=== PATIENT | male | born 1935 | race Caucasian/White ===

== ENCOUNTER → 2017-02-24 | Outpatient (CLI) | payer MEDICARE, BC ==
[2017-02-24 09:09] LABS: CHCM 31.3; HCT 55.4 % (39.0-53.0); HGB 17.7 gm/dL (13.0-17.5); Hypochromasia Slight; MCH 31.8 pg (25.0-35.0); MCV 99.4 fL (80.0-100.0); Mean Platelet Volume 7.4; RBC 5.58 m/uL (4.30-5.90); RDW 13.5 % (11.5-15.5); WBC 7.9 k/uL (3.8-10.6)
[2017-02-24 13:36] LABS: ALT 57 U/L (21-72); AST 42 U/L (17-59); Alkaline Phosphatase 107 U/L (38-126); Anion Gap 8 mmol/L; Blood Urea Nitrogen 20 mg/dL (9-20); Calcium 9.3 mg/dL (8.4-10.2); Carbon Dioxide 27 mmol/L (22-30); Chloride 108 mmol/L (98-107); Cholesterol 132 mg/dL (<200); Glucose 90 mg/dL (74-99); HDL Cholesterol 54 mg/dL (40-60); Non-African American GFR(MDRD) >60 (>60 ml/min/1.73 sqM); Potassium 4.1 mmol/L (3.5-5.1); Sodium 143 mmol/L (137-145); Total Bilirubin 1.4 mg/dL (0.2-1.3); Total Protein 7.2 g/dL (6.3-8.2)
== END | disposition home or self-care (01) ==
LOC: LABWHC1 08:29
PROVIDERS: ATTEND Family Medicine
DX: E78.00 Pure hypercholesterolemia, unspecified (principal); I25.10 Atherosclerotic heart disease of native coronary artery without angina pectoris; Z12.5 Encounter for screening for malignant neoplasm of prostate
CPT/HCPCS: 80061; 80053; 84443; 85027; 36415; G0103

== ENCOUNTER → 2017-06-24 | Outpatient (CLI) | payer MEDICARE, BC ==
[2017-06-24 14:38] LABS: T4, Free (Free Thyroxine) 0.97 ng/dL (0.78-2.19)
[2017-06-24 18:55] LABS: Protein, Total 6.9 g/dL (6.2-8.2); Rheumatoid Factor 5 IU/mL (0-15)
[2017-06-24 19:39] LABS: Anti-DNA, DS unit <1.0 IU/mL; DNA Double-Stranded NEGATIVE (NEGATIVE)
[2017-06-24 21:22] LABS: Hemoglobin A1C 5.6 % (4.0-6.0)
[2017-06-25 09:17] LABS: Lyme IgG/IgM 0.2 Index
[2017-06-25 13:47] LABS: Albumin 4.18 g/dL (3.80-4.90); Gamma Globulin 1.04 g/dL (0.70-1.50)
[2017-06-30 11:56] LABS: Arsenic Whole Blood < 2 mcg/L (< 23); Mercury Whole Blood < 2 mcg/L (< 11)
== END | disposition home or self-care (01) ==
LOC: LABWHC1 13:04
PROVIDERS: ATTEND Psychiatry & Neurology Neurology
DX: G62.9 Polyneuropathy, unspecified (principal)
CPT/HCPCS: 36415; 82175; 82550; 82570; 82607; 82747; 83036; 83655; 83825; 84165; 84439; 84443; 85652; 86038; 86225; 86431; 86618

== ENCOUNTER → 2017-06-30 | Outpatient (CLI) | payer MEDICARE, BC ==
[2017-06-30 11:32] LABS: ALT 47 U/L (21-72); AST 40 U/L (17-59); Albumin 4.2 g/dL (3.5-5.0); Alkaline Phosphatase 101 U/L (38-126); Anion Gap 11 mmol/L; Blood Urea Nitrogen 18 mg/dL (9-20); Calcium 9.6 mg/dL (8.4-10.2); Carbon Dioxide 30 mmol/L (22-30); Chloride 105 mmol/L (98-107); Cholesterol 144 mg/dL (<200); Glucose 88 mg/dL (74-99); HDL Cholesterol 63 mg/dL (40-60); LDL Cholesterol,Calculated 55 mg/dL (0-99); Magnesium 1.9 mg/dL (1.6-2.3); Potassium 4.4 mmol/L (3.5-5.1); Sodium 146 mmol/L (137-145); Total Bilirubin 1.2 mg/dL (0.2-1.3); Total Protein 7.5 g/dL (6.3-8.2); Triglycerides 132 mg/dL (<150)
== END | disposition home or self-care (01) ==
LOC: LABWHC1 10:53
PROVIDERS: ATTEND Internal Medicine Clinical Cardiac Electrophysiology
DX: I48.91 Unspecified atrial fibrillation (principal); I34.0 Nonrheumatic mitral (valve) insufficiency
CPT/HCPCS: 36415; 80053; 80061; 83735; 84443

== ENCOUNTER → 2017-12-21 | Outpatient (CLI) | payer MEDICARE, BC ==
[2017-12-21 10:26] LABS: Calcium 9.5 mg/dL (8.4-10.2); Magnesium 2.2 mg/dL (1.6-2.3); Potassium 4.7 mmol/L (3.5-5.1)
== END | disposition home or self-care (01) ==
LOC: LABWHC1 09:05
PROVIDERS: ATTEND Internal Medicine Clinical Cardiac Electrophysiology
DX: I48.91 Unspecified atrial fibrillation (principal)
CPT/HCPCS: 36415; 80048; 83735

== ENCOUNTER → 2020-03-22 | Outpatient (CLI) | payer MEDICARE, BC ==
[2020-03-23 01:21] LABS: ALT 38 U/L (10-49); AST 35 U/L (14-35)
== END | disposition home or self-care (01) ==
LOC: LABWHC1 15:24
PROVIDERS: ATTEND Podiatrist Foot & Ankle Surgery
DX: K74.60 Unspecified cirrhosis of liver (principal)
CPT/HCPCS: 36415; 84450; 84460

== ENCOUNTER → 2020-04-25 | Outpatient (CLI) | payer MEDICARE, BC ==
--- NOTE | 2020-04-26 07:42 | CT ---
EXAMINATION TYPE: CT chest wo con DATE OF EXAM: 04/25/2020 COMPARISON: NONE HISTORY: Abnormal lung findings. COPD exacerbation. CT DLP: 438.2 mGycm. Automated Exposure Control for Dose Reduction was Utilized. TECHNIQUE: CT scan of the thorax is performed without IV contrast. High resolution protocol with 1 m m sequences obtained at 10 mm intervals in supine and prone technique. FINDINGS: LUNGS: Fairly moderate posterior pleural/parenchymal scarring seen in bilateral apices. There is shilpi tional mild to moderate reticulation and pulmonary fibrotic changes in the right middle lobe near the right heart border. Mild reticulation and pulmonary fibrotic changes in the bases just above the jimbo phragm. No significant peripheral reticulation. No bulla or bleb formation. No masses. Mild central c ylindrical bronchiectasis. No suspicious peribronchial wall thickening. Mild diffuse dilatation of th e trachea. No pleural effusion or pneumothorax noted. MEDIASTINUM: Lack of IV contrast and technique are noted to limit evaluation for mediastinal and raquel ecially hilar adenopathy. There are no definitive greater than 1 cm hilar or mediastinal lymph nodes. No cardiomegaly or pericardial effusion is seen. Evidence of prior surgery at level of mitral valv e OTHER: No additional significant abnormality is seen. IMPRESSION: [id number] chronic pulmonary fibrotic changes bilaterally as detailed above. No acu te pulmonary process.
== END | disposition home or self-care (01) ==
LOC: RADCTMAIN 16:34
PROVIDERS: ATTEND Family Medicine
DX: J84.10 Pulmonary fibrosis, unspecified (principal); J44.1 Chronic obstructive pulmonary disease with (acute) exacerbation; Z88.3 Allergy status to other anti-infective agents
CPT/HCPCS: 71250

== ENCOUNTER → 2021-02-20 | Outpatient (CLI) | payer MEDICARE, BC ==
[2021-02-21 01:55] LABS: African American GFR (CKD) 98.9 (60.0-200.0); Albumin 4.1 g/dL (3.8-4.9); Albumin/Globulin Ratio 1.34 (1.60-3.17); BUN/Creat Ratio 20.22 Ratio (12.00-20.00); Blood Urea Nitrogen 14.7 mg/dL (9.0-27.0); Calcium 9.6 mg/dL (8.7-10.3); Carbon Dioxide 22.9 mmol/L (21.6-31.8); Globulin 3.1 g/dL (1.6-3.3); Non-African American GFR(CKD) 85.3 (60.0-200.0); Potassium 4.5 mmol/L (3.5-5.5); T4, Free (Free Thyroxine) 1.29 ng/dL (0.800-1.800); Total Bilirubin 1.3 mg/dL (0.30-1.20); Total Protein 7.1 g/dL (6.2-8.2)
== END | disposition home or self-care (01) ==
LOC: LABWHC1 10:50
PROVIDERS: ATTEND Psychiatry & Neurology Neurology
DX: G60.9 Hereditary and idiopathic neuropathy, unspecified (principal); R41.3 Other amnesia; R63.4 Abnormal weight loss
CPT/HCPCS: 36415; 80053; 82306; 82607; 84165; 84207; 84439; 84443; 86334

== ENCOUNTER → 2021-02-21 | Outpatient (CLI) | payer MEDICARE, BC ==
[2021-02-24 11:51] LABS: Crab IgE 0.12 kU/L (<0.10); Crab IgE Class CLASS 0/1; Lobster IgE <0.10 kU/L (<0.10); Lobster IgE Class CLASS 0
== END | disposition home or self-care (01) ==
LOC: LABWHC1 13:18
PROVIDERS: ATTEND Internal Medicine
DX: L50.9 Urticaria, unspecified (principal)
CPT/HCPCS: 36415; 86003

== ENCOUNTER → 2021-04-22 | Outpatient (CLI) | payer MEDICARE, BC ==
--- NOTE | 2021-04-22 09:28 | CT ---
EXAMINATION TYPE: CT abdomen pelvis wo con DATE OF EXAM: 04/22/2021 HISTORY: Abn wt loss over 50 pounds in [address] DLP: 248.7 mGycm. Automated Exposure Control for Dose Reduction was Utilized. TECHNIQUE: CT scan of the abdomen and pelvis is performed with oral but without IV contrast. COMPARISON: NONE FINDINGS: Within the limitations of a non-contrast study, the following observations are made. LUNG BASES: Focal moderate posterior left basilar atelectatic change and/or linear scarring. LIVER/GB: No significant abnormality is appreciated. PANCREAS: No significant abnormality is seen. SPLEEN: No significant abnormality is seen. ADRENALS: No significant abnormality is seen. KIDNEYS: There is 1.0 cm thin-walled cyst anteriorly left kidney midpole level axial series 3 image 2 9. BOWEL: Low-lying cecum into right pelvis coronal image 27 terminal ileum appears within normal limits coronal image 33. Normal-appearing appendix extending from cecum on coronal image 39. No suspicious small or large bowel dilatation. GENITAL ORGANS: Poorly visualized prostate gland. LYMPH NODES: No greater than 1cm abdominal or pelvic lymph nodes are appreciated. OSSEOUS STRUCTURES: Mild to moderate multilevel spurring and disc space narrowing. Slight underlying levoconvex scoliotic curvature on coronal images. Facet arthropathy mid to lower lumbar spine. OTHER: [id number]-ja-qsbliubv atherosclerotic change in ectatic abdominal aorta extending into common iliac arteries. Focal aneurysm infrarenal abdominal aorta measures up to 3.5 cm transversely axial image 3 2 over a short 2.0 cm length. Additional focal dilatation at the iliac bifurcation up to 2.9 cm image 42. IMPRESSION: No suspicious mass or adenopathy to suggest neoplasm. 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 Advise imaging monitoring and/or ultrasound surveilla nce.
== END | disposition home or self-care (01) ==
LOC: RADCTMAIN 08:21
PROVIDERS: ATTEND Family Medicine
DX: I70.0 Atherosclerosis of aorta (principal)
CPT/HCPCS: 74176

== ENCOUNTER → 2021-08-06 | Outpatient (CLI) | payer MEDICARE, BC ==
[2021-08-06 18:54] LABS: Basophils # (A) 0.03 X 10*3/uL (0.00-0.10); Basophils % (A) 0.3 %; Eosinophils # (A) 0.15 X 10*3/uL (0.04-0.35); Eosinophils % (A) 1.4 %; HCT 48.9 % (39.6-50.0); HGB 15.7 g/dL (13.0-17.0); Immature Grans, Automated 0.5 %; Lymphocytes # (A) 1.16 X 10*3/uL (0.90-5.00); Lymphocytes % (A) 11.1 %; MCHC 32.1 g/dL (32.0-37.0); MCV 96.4 fL (80.0-97.0); Mean Platelet Volume 9.9 fL (9.5-12.2); Monocytes # (A) 0.71 X 10*3/uL (0.20-1.00); Monocytes % (A) 6.8 %; NRBC Per 100 WBC 0 /100 WBCS (0.0-0.0); Neutrophils # (A) 8.37 X 10*3/uL (1.80-7.70); Neutrophils % (A) 79.9 %; Platelet Count 267 X 10*3/uL (140-440); RBC 5.07 X 10*6/uL (4.40-5.60); WBC 10.47 X 10*3/uL (4.50-10.00)
[2021-08-07 00:24] LABS: African American GFR (CKD) 84.6 (60.0-200.0); Albumin 3.6 g/dL (3.8-4.9); Albumin/Globulin Ratio 0.94 (1.60-3.17); BUN/Creat Ratio 13.03 Ratio (12.00-20.00); Blood Urea Nitrogen 12.4 mg/dL (9.0-27.0); Calcium 9.6 mg/dL (8.7-10.3); Carbon Dioxide 22.7 mmol/L (20.0-27.5); Globulin 3.8 g/dL (1.6-3.3); Potassium 4.8 mmol/L (3.5-5.5); Total Bilirubin 0.8 mg/dL (0.30-1.20); Total Protein 7.4 g/dL (6.2-8.2)
== END | disposition home or self-care (01) ==
LOC: LABWHC1 09:57
PROVIDERS: ATTEND Internal Medicine Gastroenterology
DX: R63.4 Abnormal weight loss (principal)
CPT/HCPCS: 36415; 80053; 85025

== ENCOUNTER → 2021-08-06 | Outpatient (CLI) | payer MEDICARE, BC ==
--- NOTE | 2021-08-07 09:55 | MR ---
EXAMINATION TYPE: MR abdomen wo/w con DATE OF EXAM: 08/06/2021 COMPARISON: CT abdomen and pelvis April 22, 2021 HISTORY: Abnormal weight loss CONTRAST: Standard multiplanar, multisequence MRI departmental protocol images were obtained without contrast a nd with 5.5 mL intravenous Gadavist gadolinium contrast. FINDINGS: Examination is suboptimal as patient cannot hold breath for ideal imaging. Lung bases remai n grossly clear. There is diffuse signal increase in the liver on in and out of phase imaging, correl ate clinically to exclude hemochromatosis or iron deposition. No concerning solid or cystic intrahepa tic mass. Gallbladder shows no intraluminal gallstones. Spleen and pancreas appear within normal limi ts. No adrenal masses. Occasional subcentimeter thin-walled cysts scattered throughout both kidneys a re identified. No suspicious small or large bowel dilatation is seen. There is focal AAA demonstrated up to 3.4 cm p ostcontrast image 240. This has areas of increased T1 signal along the periphery. Additional eccentri c focal aneurysm at the bifurcation measuring 1.5 x 1.1 cm image 130 series 1101 is redemonstrated. T his also has increased T1 signal. No intra-abdominal ascites. The osseous structures are intact. Low- lying cecum into the right pelvis is redemonstrated. Urinary bladder appears within normal limits. IMPRESSION: Suboptimal study. No obvious mass or adenopathy to suggest neoplasm. Redemonstration of 2 known focal aneurysms in the abdominal aorta. Both show areas of T1 hyperintensity, some suspect thi s finding correlates with more rapid growth rate of known aneurysms.
== END | disposition home or self-care (01) ==
LOC: RADMRIMAIN 08:32
PROVIDERS: ATTEND Internal Medicine Gastroenterology
DX: I71.4 Abdominal aortic aneurysm, without rupture (principal)
CPT/HCPCS: 74183; A9585; 36415; 80053; 85025

== ENCOUNTER → 2021-08-07 | Outpatient (CLI) | payer MEDICARE, BC ==
--- NOTE | 2021-08-07 13:35 | MR ---
EXAMINATION TYPE: MR pelvis wo/w con DATE OF EXAM: 08/07/2021 COMPARISON: HISTORY: Abnormal weight loss, abdomen scan 08-06-21. CONTRAST: Standard multiplanar, multisequence MRI departmental protocol images were obtained without contrast a nd with 5 mL intravenous Gadavist gadolinium contrast. FINDINGS: Urinary bladder demonstrates normal wall thickness. No evidence for pelvic mass or free fluid. Prostate gland is not enlarged. No evidence of pelvic adenopathy. Vascular structures as visualized within the [id number] are nonaneurysmal. Mild degenerative change lower lumbar spine. Visualized bowel loops appear to be of normal caliber without inflammatory process. IMPRESSION: No significant abnormality appreciated at this time.
== END | disposition home or self-care (01) ==
LOC: RADMRIMAIN 11:09
PROVIDERS: ATTEND Internal Medicine Gastroenterology
DX: R63.4 Abnormal weight loss (principal)
CPT/HCPCS: 72197; A9585